=== PATIENT | female | born 1955 | race Caucasian/White ===

== ENCOUNTER 2018-10-13 08:03 | Emergency (ER) | payer MEDICAID ==
[~2018-10-13] VITALS: Ht 162.6 cm; Wt 86.2 kg
[2018-10-13 09:52] LABS: UA SPECIFIC GRAVITY >=1.030 (1.005-1.035); microscopic required? YES; urine erythrocyte TRACE (NEGATIVE)
[2018-10-13 11:00] VITALS: BP 141/87
== END 2018-10-13 11:00 | disposition home or self-care (01) ==
LOC: ED 08:03
PROVIDERS: Emergency Medicine
DX: N93.9 Abnormal uterine and vaginal bleeding, unspecified (principal); M54.5 Low back pain; M79.7 Fibromyalgia; J45.909 Unspecified asthma, uncomplicated
CPT/HCPCS: J1885